=== PATIENT | male | born 1955 | race Caucasian/White ===

== ENCOUNTER → 2018-07-14 | Outpatient (CLI) | payer BC ==
--- NOTE | 2018-07-14 12:32 | CT ---
EXAMINATION TYPE: CT abdomen pelvis w con DATE OF EXAM: 07/14/2018 COMPARISON: None HISTORY: Mid Abdominal and Pelvic pain on and off with bowel changes for [address] DLP: 566.5 mGycm Automated exposure control for dose reduction was used. TECHNIQUE: Helical acquisition of images was performed from the lung bases through the pelvis. CONTRAST: Performed with Oral Contrast and with IV Contrast, patient injected with 100 mL of Isovue 300. FINDINGS: LUNG BASES: Left hemidiaphragm elevation is seen. Minimal bibasilar subsegmental dependent atelectasi s is present. LIVER/GB: There is slight decreased attenuation of the hepatic parenchyma in comparison to the spleen indicating minimal hepatic steatosis. This limits evaluation for hepatic masses although no discrete hepatic masses are seen. No cholelithiasis. PANCREAS: Unremarkable in enhancement and morphology. SPLEEN: No significant abnormality is seen. ADRENALS: Slight thickening of the bilateral adrenal glands without discrete nodule suggestive of O g land hyperplasia, a benign finding. KIDNEYS: There are bilateral renal sinus cysts. Kidneys enhance and excrete symmetrically. FREE AIR: No free air is visualized. ADENOPATHY: No greater than 1 cm short axis lymph node is visualized within the abdomen or pelvis. REPRODUCTIVE ORGANS: Prostate gland is not enlarged although is slightly heterogenous, a nonspecific finding on CT. URINARY BLADDER: No significant abnormality is seen. OSSEOUS STRUCTURES: There is grade 1 anterolisthesis of L5 on S1 secondary to bilateral pars interar ticularis defects. There is also minimal retrolisthesis of L1 on L2 and T12 on L1 and mild multilevel degenerative changes of the spine. BOWEL: There is haustral thickening of the cecum such as on coronal image 33 and 31 and series 7 as well as on axial images 58 through 60. No dilated large or small bowel is seen. IMPRESSION: 1. HAUSTRAL THICKENING OF THE CECUM THAT COULD RELATE TO COLONIC SPASM, RETAINED STOOL, OR COLONIC NE OPLASM. CORRELATE WITH ANY RECENT COLONOSCOPY. IF NOT RECENTLY PERFORMED COLONOSCOPY WOULD BE RECOMME NDED. 2. MULTILEVEL MALALIGNMENT OF THE THORACOLUMBAR SPINE DESCRIBED ABOVE IN ADDITION TO MILD MULTILEV EL DEGENERATIVE CHANGE 3. SLIGHT HEPATIC STEATOSIS.
== END | disposition home or self-care (01) ==
LOC: RADCTMAIN 09:54
PROVIDERS: ATTEND Family Medicine
DX: K76.0 Fatty (change of) liver, not elsewhere classified (principal); K63.89 Other specified diseases of intestine; R10.9 Unspecified abdominal pain
CPT/HCPCS: 74177; Q9967

== ENCOUNTER 2018-07-17 14:10 | Observation (INO) | payer BC ==
[2018-07-17] MEDS ORDERED: SODIUM CHLORIDE 0.9% 1,000 ML IV STA ×3 (14:27→19:29)
[2018-07-17] MEDS ORDERED: HYDROmorphone 1 MG/ML 1 ML SYRINGE IVP STA (14:27)
[2018-07-17 14:53] LABS: Basophils % (A) 0 %; Eosinophils # (A) 0.1 k/uL (0-0.7); Eosinophils % (A) 1 %; HCT 49.7 % (39.0-53.0); HGB 16.6 gm/dL (13.0-17.5); Lymphocytes # (A) 0.6 k/uL (1.0-4.8); Lymphocytes % (A) 4 %; MCH 30.1 pg (25.0-35.0); MCHC 33.3 g/dL (31.0-37.0); MCV 90.4 fL (80.0-100.0); Mean Platelet Volume 7.3; Monocytes # (A) 0.6 k/uL (0-1.0); Monocytes % (A) 4 %; Neutrophils % (A) 91 %; Platelet Count 201 k/uL (150-450); RDW 12.5 % (11.5-15.5); WBC 16.5 k/uL (3.8-10.6)
[2018-07-17 15:05] LABS: Albumin 4.3 g/dL (3.5-5.0); Calcium 9.3 mg/dL (8.4-10.2); Magnesium 1.8 mg/dL (1.6-2.3); Potassium 4.2 mmol/L (3.5-5.1); Total Protein 6.6 g/dL (6.3-8.2)
--- NOTE | 2018-07-17 15:16 | ED ---
Abdominal Pain HPI - General Chief Complaint: Abdominal Pain Stated Complaint: abdominal pain Time Seen by Provider: 07/17/18 14:14 Source: patient, EMS, RN notes reviewed, old records reviewed Mode of arrival: EMS Limitations: no limitations, language barrier - History of Present Illness Initial Comments: This is a 63-year-old male with complaints of abdominal pain going on for last week or so it's worse today left lower quadrant area some radiation to the back he states he been under last stress lately and has irritable bowel. He did have a CAT scan done 3 days ago and does not know the results. He denies any cough phlegm production fevers chills sweats dysuria hematuria. He is to have a colonoscopy in the of this month. No other complaints he does state the pain is sharp stabbing and severe. The patient was given Toradol IV by paramedics he gets some relief in the pain came back. MD Complaint: abdominal pain - Related Data Home Medications Medication Instructions Recorded Confirmed Atenolol 25 mg PO HS 07/17/18 07/17/18 Atorvastatin [Lipitor] 20 mg PO HS 07/17/18 07/17/18 Dicyclomine [Bentyl] 20 mg PO TID 07/17/18 07/17/18 Methylphenidate HCl [Ritalin] 10 mg PO TID 07/17/18 07/17/18 Allergies Allergy/AdvReac Type Severity Reaction Status Date / Time latex Allergy Rash/Hives Verified 07/17/18 15:15 sulfite Allergy Dyspnea Verified 07/17/18 15:15 Review of Systems ROS Statement: Those systems with pertinent positive or pertinent negative responses have been documented in the HPI. ROS Other: All systems not noted in ROS Statement are negative. Past Medical History Past Medical History: Hyperlipidemia, Hypertension History of Any Multi-Drug Resistant Organisms: None Reported Past Surgical History: No Surgical Hx Reported Additional Past Surgical History / Comment(s): prostate surg Past Psychological History: No Psychological Hx Reported Smoking Status: Never smoker Past Alcohol Use History: None Reported General Exam - General Exam Comments Initial Comments: This is a well developed well-nourished awake alert oriented 3 male Limitations: no limitations, language barrier General appearance: alert, anxious Head exam: Present: atraumatic, normocephalic, normal inspection Eye exam: Present: normal appearance, PERRL, EOMI. Absent: scleral icterus, conjunctival injection, periorbital swelling ENT exam: Present: normal exam, mucous membranes moist Neck exam: Present: normal inspection, full ROM. Absent: tenderness, meningismus, lymphadenopathy Respiratory exam: Present: normal lung sounds bilaterally. Absent: respiratory distress, wheezes, rales, rhonchi, stridor, chest wall tenderness Cardiovascular Exam: Present: regular rate, normal rhythm, normal heart sounds. Absent: systolic murmur, diastolic murmur, rubs, gallop, clicks GI/Abdominal exam: Present: soft, tenderness (Tenderness to palpation over left flank and lower quadrant area), normal bowel sounds. Absent: distended, guarding, rebound, rigid, bruit, pulsatile mass, hernia Rectal exam: Present: deferred Extremities exam: Present: normal inspection, full ROM, normal capillary refill. Absent: tenderness, pedal edema, joint swelling, calf tenderness Back exam: Present: normal inspection Neurological exam: Present: alert, oriented X3, CN II-XII intact Psychiatric exam: Present: normal affect, normal mood Skin exam: Present: warm, dry, intact, normal color. Absent: rash Course Vital Signs 07/17/18 07/17/18 07/17/18 14:15 14:16 14:30 Temperature 97.1 F L Pulse Rate 56 L 57 L 53 L Respiratory 13 28 H 17 Rate Blood Pressure 128/77 128/77 O2 Sat by Pulse 100 100 Oximetry 07/17/18 07/17/18 07/17/18 15:00 15:30 16:00 Temperature Pulse Rate 74 81 82 Respiratory 12 11 L 15 Rate Blood Pressure 118/107 124/72 128/77 O2 Sat by Pulse 98 88 L 94 L Oximetry 07/17/18 07/17/18 07/17/18 16:30 17:00 17:30 Temperature Pulse Rate 94 74 79 Respiratory 20 16 14 Rate Blood Pressure 127/73 127/72 141/78 O2 Sat by Pulse 97 94 L 96 Oximetry 07/17/18 07/17/18 07/17/18 18:00 18:30 19:00 Temperature Pulse Rate 75 75 Respiratory 13 15 Rate Blood Pressure 131/74 143/78 O2 Sat by Pulse 95 Oximetry 07/17/18 19:51 Temperature 99.3 F Pulse Rate 72 Respiratory 16 Rate Blood Pressure 143/89 O2 Sat by Pulse 98 Oximetry - Reevaluation(s) Reevaluation #1: 07/17/18 15:15 I did review the CT report hospital 13 of the C Georgette could be related to colonic spasm and retain stool colonic neoplasm not ruled out multi level malalignment of the thoracic or lumbar spine mild multilevel degenerative changes slight hepatic steatosis Medical Decision Making - Medical Decision Making Patient still has intermittent episodes of abdominal pain that he is improved the. He did have an elevated white blood cell count elevated lactic acid believe the lactic acid is elevated based on primarily fluid depravation however infectious processes still not totally ruled out. Patient will be admitted for continued IV fluids IV antibiotics. - Lab Data Result diagrams: 07/17/18 14:34 07/17/18 14:34 Lab Results 07/17/18 07/17/18 07/17/18 Range/Units 14:34 14:34 14:34 WBC 16.5 H (3.8-10.6) k/uL RBC 5.50 (4.30-5.90) m/uL Hgb 16.6 (13.0-17.5) gm/dL Hct 49.7 (39.0-53.0) % MCV 90.4 (80.0-100.0) fL MCH 30.1 (25.0-35.0) pg MCHC 33.3 (31.0-37.0) g/dL RDW 12.5 (11.5-15.5) % Plt Count 201 (150-450) k/uL Neutrophils % 91 % Lymphocytes % 4 % Monocytes % 4 % Eosinophils % 1 % Basophils % 0 % Neutrophils # 15.0 H (1.3-7.7) k/uL Lymphocytes # 0.6 L (1.0-4.8) k/uL Monocytes # 0.6 (0-1.0) k/uL Eosinophils # 0.1 (0-0.7) k/uL Basophils # 0.0 (0-0.2) k/uL Sodium 141 (137-145) mmol/L Potassium 4.2 (3.5-5.1) mmol/L Chloride 108 H (98-107) mmol/L Carbon Dioxide 21 L (22-30) mmol/L Anion Gap 12 mmol/L BUN 26 H (9-20) mg/dL Creatinine 1.03 (0.66-1.25) mg/dL Est GFR (CKD-EPI)AfAm 89 (>60 ml/min/1.73 sqM) Est GFR (CKD-EPI)NonAf 77 (>60 ml/min/1.73 sqM) Glucose 126 H (74-99) mg/dL Lactic Ac Sepsis Rflx Plasma Lactic Acid Ken (0.7-2.0) mmol/L Calcium 9.3 (8.4-10.2) mg/dL Magnesium 1.8 (1.6-2.3) mg/dL Total Bilirubin 1.0 (0.2-1.3) mg/dL AST 21 (17-59) U/L ALT 35 (21-72) U/L Alkaline Phosphatase 73 (38-126) U/L Total Creatine Kinase 109 (55-170) U/L CK-MB (CK-2) 1.5 (0.0-2.4) ng/mL CK-MB (CK-2) Rel Index 1.4 Troponin I <0.012 (0.000-0.034) ng/mL Total Protein 6.6 (6.3-8.2) g/dL Albumin 4.3 (3.5-5.0) g/dL Amylase 74 (30-110) U/L Lipase 205 (23-300) U/L Urine Color Urine Appearance (Clear) Urine pH (5.0-8.0) Ur Specific [place] (1.001-1.035) Urine Protein (Negative) Urine Glucose (UA) (Negative) Urine Ketones (Negative) Urine Blood (Negative) Urine Nitrite (Negative) Urine Bilirubin (Negative) Urine Urobilinogen (<2.0) mg/dL Ur Leukocyte Esterase (Negative) Urine RBC (0-5) /hpf Urine WBC (0-5) /hpf Ur Squamous Epith Cells (0-4) /hpf Urine Mucus (None) /hpf 07/17/18 07/17/18 07/17/18 Range/Units 14:34 15:21 19:00 WBC (3.8-10.6) k/uL RBC (4.30-5.90) m/uL Hgb (13.0-17.5) gm/dL Hct (39.0-53.0) % MCV (80.0-100.0) fL MCH (25.0-35.0) pg MCHC (31.0-37.0) g/dL RDW (11.5-15.5) % Plt Count (150-450) k/uL Neutrophils % % Lymphocytes % % Monocytes % % Eosinophils % % Basophils % % Neutrophils # (1.3-7.7) k/uL Lymphocytes # (1.0-4.8) k/uL Monocytes # (0-1.0) k/uL Eosinophils # (0-0.7) k/uL Basophils # (0-0.2) k/uL Sodium (137-145) mmol/L Potassium (3.5-5.1) mmol/L Chloride (98-107) mmol/L Carbon Dioxide (22-30) mmol/L Anion Gap mmol/L BUN (9-20) mg/dL Creatinine (0.66-1.25) mg/dL Est GFR (CKD-EPI)AfAm (>60 ml/min/1.73 sqM) Est GFR (CKD-EPI)NonAf (>60 ml/min/1.73 sqM) Glucose (74-99) mg/dL Lactic Ac Sepsis Rflx Y Plasma Lactic Acid Ken 4.1 H* (0.7-2.0) mmol/L Calcium (8.4-10.2) mg/dL Magnesium (1.6-2.3) mg/dL Total Bilirubin (0.2-1.3) mg/dL AST (17-59) U/L ALT (21-72) U/L Alkaline Phosphatase (38-126) U/L Total Creatine Kinase (55-170) U/L CK-MB (CK-2) (0.0-2.4) ng/mL CK-MB (CK-2) Rel Index Troponin I (0.000-0.034) ng/mL Total Protein (6.3-8.2) g/dL Albumin (3.5-5.0) g/dL Amylase (30-110) U/L Lipase (23-300) U/L Urine Color Light Yellow Urine Appearance Clear (Clear) Urine pH 6.0 (5.0-8.0) Ur Specific [place] >1.050 H (1.001-1.035) Urine Protein Negative (Negative) Urine Glucose (UA) Negative (Negative) Urine Ketones 1+ H (Negative) Urine Blood Moderate H (Negative) Urine Nitrite Negative (Negative) Urine Bilirubin Negative (Negative) Urine Urobilinogen <2.0 (<2.0) mg/dL Ur Leukocyte Esterase Negative (Negative) Urine RBC 24 H (0-5) /hpf Urine WBC 1 (0-5) /hpf Ur Squamous Epith Cells <1 (0-4) /hpf Urine Mucus Occasional H (None) /hpf 07/17/18 Range/Units 19:20 WBC (3.8-10.6) k/uL RBC (4.30-5.90) m/uL Hgb (13.0-17.5) gm/dL Hct (39.0-53.0) % MCV (80.0-100.0) fL MCH (25.0-35.0) pg MCHC (31.0-37.0) g/dL RDW (11.5-15.5) % Plt Count (150-450) k/uL Neutrophils % % Lymphocytes % % Monocytes % % Eosinophils % % Basophils % % Neutrophils # (1.3-7.7) k/uL Lymphocytes # (1.0-4.8) k/uL Monocytes # (0-1.0) k/uL Eosinophils # (0-0.7) k/uL Basophils # (0-0.2) k/uL Sodium (137-145) mmol/L Potassium (3.5-5.1) mmol/L Chloride (98-107) mmol/L Carbon Dioxide (22-30) mmol/L Anion Gap mmol/L BUN (9-20) mg/dL Creatinine (0.66-1.25) mg/dL Est GFR (CKD-EPI)AfAm (>60 ml/min/1.73 sqM) Est GFR (CKD-EPI)NonAf (>60 ml/min/1.73 sqM) Glucose (74-99) mg/dL Lactic Ac Sepsis Rflx Plasma Lactic Acid Ken <0.5 L (0.7-2.0) mmol/L Calcium (8.4-10.2) mg/dL Magnesium (1.6-2.3) mg/dL Total Bilirubin (0.2-1.3) mg/dL AST (17-59) U/L ALT (21-72) U/L Alkaline Phosphatase (38-126) U/L Total Creatine Kinase (55-170) U/L CK-MB (CK-2) (0.0-2.4) ng/mL CK-MB (CK-2) Rel Index Troponin I (0.000-0.034) ng/mL Total Protein (6.3-8.2) g/dL Albumin (3.5-5.0) g/dL Amylase (30-110) U/L Lipase (23-300) U/L Urine Color Urine Appearance (Clear) Urine pH (5.0-8.0) Ur Specific [place] (1.001-1.035) Urine Protein (Negative) Urine Glucose (UA) (Negative) Urine Ketones (Negative) Urine Blood (Negative) Urine Nitrite (Negative) Urine Bilirubin (Negative) Urine Urobilinogen (<2.0) mg/dL Ur Leukocyte Esterase (Negative) Urine RBC (0-5) /hpf Urine WBC (0-5) /hpf Ur Squamous Epith Cells (0-4) /hpf Urine Mucus (None) /hpf - Radiology Data Radiology results: report reviewed (I did review the imaging and report no definite acute findings are seen.), image reviewed Disposition Clinical Impression: Abdominal pain, Lactic acidosis, Dehydration, Leukocytosis Disposition: ADMITTED IP TO THIS [facility] Condition: Stable Referrals: Didi Hackett DO [Primary Care Provider] - 1-2 days
[2018-07-17] MEDS ORDERED: SODIUM CHLORIDE 0.9% 2,000 ML IV ONE (15:23)
[2018-07-17 15:25] LABS: Creatine Kinase 109 U/L (55-170)
[2018-07-17] MEDS ORDERED: FUROSEMIDE 10 MG/ML 4 ML VIAL IV SCH (15:30)
[2018-07-17 15:37] LABS: Creatine Kinase MB 1.5 ng/mL (0.0-2.4); Troponin I <0.012 ng/mL (0.000-0.034)
--- NOTE | 2018-07-17 15:54 | XR ---
EXAMINATION TYPE: XR KUB DATE OF EXAM: 07/17/2018 CLINICAL DATA: 63 year-old male abdominal pain, [facility] COMPARISON: None FINDINGS: Lung bases are clear. No evidence for free intraperitoneal air. Some small air-fluid levels are present in the mid lower abdomen and in the right side of the colon. No dilated bowel loops are seen. No suspicious calcifications. No significant stool burden. IMPRESSION: 1. Nonspecific, overall nonobstructive bowel gas pattern. No free air. 2. Some small air-fluid levels are present in the mid lower abdomen and right side of the colon. Torsten elate for ileus or enteritis.
[2018-07-17] MEDS ORDERED: METHYLPHENIDATE HCL 10 MG TAB PO SCH (16:00)
[2018-07-17] MEDS ORDERED: DICYCLOMINE 20 MG TAB PO SCH (16:00)
[2018-07-17] MEDS ORDERED: INSULIN ASPART 100 UNIT/ML 1 ML 10 ML VIAL SQ SCH (17:30)
[2018-07-17] MEDS ORDERED: NITROGLYCERIN OINT 1 INCH/GM PACKET TOPICAL SCH (18:00)
--- NOTE | 2018-07-17 18:32 | CT ---
EXAMINATION TYPE: CT abdomen pelvis w con DATE OF EXAM: 07/17/2018 COMPARISON: July 14, 2018 HISTORY: Right lower abdominal pain. CT DLP: 671.2 mGycm Automated exposure control for dose reduction was used. TECHNIQUE: Helical acquisition of images was performed from the lung bases through the pelvis. CONTRAST: Performed without Oral Contrast and with IV Contrast, patient injected with 100ml mL of Isovue 300. FINDINGS: The lung bases are clear. There is no pleural effusion. Heart size is normal. There is no pericardial effusion. Liver spleen pancreas gallbladder appear normal. Bile ducts are not dilated. There is no a drenal mass. Kidneys of normal size and contour. There is bilateral large renal parapelvic cysts. Ure ters are not dilated. There is no retroperitoneal adenopathy. There is no free fluid in the pelvis. B ladder distends smoothly. There is no inguinal hernia. I see no mesenteric edema or adenopathy. I see no bony destructive process. There is L5 spondylolysis with first-degree L5-S1 spondylolisthesis. I see no acute fracture. IMPRESSION: L5 SPONDYLOLYSIS WITH FIRST-DEGREE L5-S1 SPONDYLOLISTHESIS UNCHANGED. I SEE NO ABNORMALITY OF THE CECUM THAT IS SUGGESTED BY PREVIOUS EXAM. LARGE RENAL PARAPELVIC CYSTS UN CHANGED. NO SIGN OF ACUTE ABDOMEN AND PELVIS.
--- NOTE | 2018-07-17 19:22 | XR ---
EXAMINATION TYPE: XR chest 2V DATE OF EXAM: 07/17/2018 COMPARISON: NONE HISTORY: Cough TECHNIQUE: Frontal and lateral views of the chest are obtained. FINDINGS: Heart and mediastinum are normal. Lungs are clear. Costophrenic angles are clear. Bony tho rax appears normal. There are chest leads. IMPRESSION: Normal chest.
[2018-07-17 19:49] LABS: Appearance,Urine Clear (Clear); Bilirubin,Urine Negative (Negative); Blood,Urine Moderate (Negative); Color,Urine Light Yellow; Glucose,Urine (UA) Negative (Negative); Ketones,Urine 1+ (Negative); Leukocyte Esterase,Urine Negative (Negative); Mucus,Urine Occasional /hpf; Nitrite,Urine Negative (Negative); Protein,Urine Negative (Negative); RBC,Urine 24 /hpf (0-5); Squamous Epithelial Cell,Urine <1 /hpf (0-4); Urobilinogen,Urine <2.0 mg/dL (<2.0); WBC,Urine 1 /hpf (0-5)
[2018-07-17 20:14] LABS: Specific Gravity,Urine >1.050 (1.001-1.035)
[2018-07-17] MEDS ORDERED: ONDANSETRON 4 MG/2 ML VIAL IVP PRN (20:22)
[2018-07-17] MEDS ORDERED: NALOXONE 0.4 MG/ML 1 ML VIAL IV PRN (20:22)
[2018-07-17] MEDS ORDERED: ATORVASTATIN 20 MG TAB PO SCH (21:00)
[2018-07-17] MEDS ORDERED: ATENOLOL 25 MG TAB PO SCH (21:00)
[2018-07-17] MEDS: HYDROmorphone 1 MG/ML 1 ML SYRINGE IVP PRN (23:28)
[2018-07-18 00:09] VITALS: TEMP 98.4
[2018-07-18] MEDS: HYDROmorphone 1 MG/ML 1 ML SYRINGE IVP PRN ×2 (05:23→11:21)
[2018-07-18 06:08] VITALS: BP 129/70; PULSE 72; RESP 18
[2018-07-18] MEDS ORDERED: PANTOPRAZOLE 40 MG/10 ML VIAL IV SCH (09:00)
[2018-07-18 11:28] LABS: Basophils % (A) 1 %; Eosinophils # (A) 0.1 k/uL (0-0.7); Eosinophils % (A) 1 %; HCT 42.4 % (39.0-53.0); HGB 13.9 gm/dL (13.0-17.5); Lymphocytes # (A) 0.9 k/uL (1.0-4.8); Lymphocytes % (A) 12 %; MCH 29.9 pg (25.0-35.0); MCHC 32.8 g/dL (31.0-37.0); MCV 91.3 fL (80.0-100.0); Mean Platelet Volume 7.2; Monocytes # (A) 0.4 k/uL (0-1.0); Monocytes % (A) 6 %; Neutrophils # (A) 5.5 k/uL (1.3-7.7); Neutrophils % (A) 78 %; Platelet Count 153 k/uL (150-450); RBC 4.65 m/uL (4.30-5.90); RDW 12.7 % (11.5-15.5); WBC 7.1 k/uL (3.8-10.6)
--- NOTE | 2018-07-18 11:40 | P.HPIM ---
History of Present Illness H&P Date: 07/18/18 Chief Complaint: Abdominal pain Jerry Goodwin is a 63-year-old male patient of Dr. Didi Hackett who presented to [facility] emergency room with a chief complaint of abdominal pain patient describes severe pain in the left side of his abdomen lasting about 4 hours, patient also states that he has been having abdominal pain for several weeks now he was evaluated as outpatient he had a computed tomography scan of the abdomen and pelvis on 07/14/2018 that revealed thickening of the cecum patient was scheduled as outpatient to have a colonoscopy however he had an episode of severe acute abdominal pain and he decided to come to emergency room, he was evaluated in ER his white blood count was elevated at 16.5 his lactic acid was elevated at 4.1 x-ray of the abdomen revealed air-fluid levels are present in the mid lower abdomen and right side of the colon computed tomography scan of the abdomen and pelvis failed to reveal any significant abnormality he was admitted to medical floor for further evaluation and treatment. Patient stated that he has been under significant amount of stress recently, his father had a prolonged illness and past away recently. He was given Bentyl as outpatient for management of abdominal pain, possibly related to irritable bowel syndrome. Past Medical History Past Medical History: Hyperlipidemia, Hypertension History of Any Multi-Drug Resistant Organisms: None Reported Past Surgical History: No Surgical Hx Reported Additional Past Surgical History / Comment(s): prostate surg Past Anesthesia/Blood Transfusion Reactions: No Reported Reaction Past Psychological History: No Psychological Hx Reported Smoking Status: Never smoker Past Alcohol Use History: None Reported Past Drug Use History: None Reported - Past Family History Father Family Medical History: Cancer, Hypertension, Myocardial Infarction ([place]) Medications and Allergies Home Medications Medication Instructions Recorded Confirmed Type Atenolol 25 mg PO HS 07/17/18 07/17/18 History Atorvastatin [Lipitor] 20 mg PO HS 07/17/18 07/17/18 History Dicyclomine [Bentyl] 20 mg PO TID 07/17/18 07/17/18 History Methylphenidate HCl [Ritalin] 10 mg PO TID 07/17/18 07/17/18 History Allergies Allergy/AdvReac Type Severity Reaction Status Date / Time latex Allergy Rash/Hives Verified 07/17/18 15:15 sulfite Allergy Dyspnea Verified 07/17/18 15:15 Physical Exam Vitals: Vital Signs Temp Pulse Pulse Resp BP BP Pulse Ox 07/18/18 06:07 98.4 F 72 18 129/70 98 07/17/18 23:00 98.4 F 69 19 143/76 95 07/17/18 19:51 99.3 F 72 16 143/89 98 07/17/18 19:00 75 15 143/78 07/17/18 18:30 75 13 95 07/17/18 18:00 131/74 07/17/18 17:30 79 14 141/78 96 07/17/18 17:00 74 16 127/72 94 L 07/17/18 16:30 94 20 127/73 97 07/17/18 16:00 82 15 128/77 94 L 07/17/18 15:30 81 11 L 124/72 88 L 07/17/18 15:00 74 12 118/107 98 07/17/18 14:30 53 L 17 128/77 100 07/17/18 14:16 97.1 F L 57 L 28 H 128/77 100 07/17/18 14:15 56 L 13 Intake and Output 07/17/18 07/18/18 07/18/18 22:59 06:59 14:59 Other: # Voids 1 2 In general patient is alert and oriented 3 in no apparent distress HEENT head normocephalic and atraumatic Neck is supple no JVD no goiter no lymphadenopathy Chest exam reveals a few scattered crackles bilaterally no wheezing Cardiac exam reveals regular heart sounds S1 and S2 no gallops no murmurs Abdomen is soft nontender no organomegaly with normal bowel sounds no rigidity or rebound Extremity exam reveals no edema no cyanosis or clubbing Results CBC & Chem 7: 07/17/18 14:34 07/17/18 14:34 Labs: Abnormal Lab Results - Last 24 Hours (Table) 07/17/18 07/17/18 07/17/18 Range/Units 14:34 14:34 14:34 WBC 16.5 H (3.8-10.6) k/uL Neutrophils # 15.0 H (1.3-7.7) k/uL Lymphocytes # 0.6 L (1.0-4.8) k/uL Chloride 108 H (98-107) mmol/L Carbon Dioxide 21 L (22-30) mmol/L BUN 26 H (9-20) mg/dL Glucose 126 H (74-99) mg/dL Plasma Lactic Acid Ken 4.1 H* (0.7-2.0) mmol/L Ur Specific [place] (1.001-1.035) Urine Ketones (Negative) Urine Blood (Negative) Urine RBC (0-5) /hpf Urine Mucus (None) /hpf 07/17/18 07/17/18 Range/Units 19:00 19:20 WBC (3.8-10.6) k/uL Neutrophils # (1.3-7.7) k/uL Lymphocytes # (1.0-4.8) k/uL Chloride (98-107) mmol/L Carbon Dioxide (22-30) mmol/L BUN (9-20) mg/dL Glucose (74-99) mg/dL Plasma Lactic Acid Ken <0.5 L (0.7-2.0) mmol/L Ur Specific [place] >1.050 H (1.001-1.035) Urine Ketones 1+ H (Negative) Urine Blood Moderate H (Negative) Urine RBC 24 H (0-5) /hpf Urine Mucus Occasional H (None) /hpf Thrombosis Risk Factor Assmnt - Choose All That Apply Any of the Below Risk Factors Present?: Yes Other Risk Factors: Yes Each Risk Factor Represents 2 Points: Age 61-74 years Other congenital or acquired thrombophilia - If yes, enter type in comment: No Thrombosis Risk Factor Assessment Total Risk Factor Score: 2 Thrombosis Risk Factor Assessment Level: Low Risk Assessment and Plan Plan: #1 acute abdominal pain, with leukocytosis and elevated lactic acid Cause is unclear patient is admitted to medical floor surgical consultation requested repeat lab ordered, will follow closely #2 elevated lactic acid no evidence of sepsis will monitor, patient was given 1 dose of IV Rocephin in the emergency room, will hold off IV antibiotic at this time and monitor #3 underlying history of hypertension maintained on atenolol continue #4 underlying history of hyperlipidemia maintained on Lipitor continue #5 underlying history of irritable bowel disease maintained on Bentyl, continue Will recheck labs this a.m. patient at this time is asymptomatic If stable he may be able to be discharged home and follow up with his colonoscopy as outpatient
[2018-07-18 11:43] LABS: Chloride 109 mmol/L (98-107)
[2018-07-18 11:45] LABS: ALT 33 U/L (21-72); AST 18 U/L (17-59); Albumin 3.5 g/dL (3.5-5.0); Alkaline Phosphatase 53 U/L (38-126); Anion Gap 6 mmol/L; Blood Urea Nitrogen 18 mg/dL (9-20); Calcium 8.8 mg/dL (8.4-10.2); Carbon Dioxide 25 mmol/L (22-30); Glucose 90 mg/dL (74-99); Potassium 3.9 mmol/L (3.5-5.1); Sodium 140 mmol/L (137-145); Total Bilirubin 0.7 mg/dL (0.2-1.3); Total Protein 5.7 g/dL (6.3-8.2)
--- NOTE | 2018-07-18 12:52 | P.DS ---
Providers Date of admission: 07/17/18 20:22 Expected date of discharge: 07/18/18 Attending physician: Lilliana Lebron Consults: 07/17/18 20:25 Consult Physician Routine Consulting Provider: Mateo Lay Consult Reason/Comments: Abdominal pain Do you want consulting provider notified?: Yes, Notify in am Primary care physician: Didi Hackett [place] Hospital Course: Diagnosis on discharge: #1 acute abdominal pain, with leukocytosis and elevated lactic acid, Cause is unclear patient is admitted to medical floor surgical consultation requested repeat lab ordered, will follow closely Abdominal pain resolved lactic acid was down to normal less than 0.5 and white blood count was down to normal patient was feeling well and asymptomatic he was evaluated by general surgery and was cleared for discharge he was discharged home on 07/18/2018 he will be followed as outpatient for colonoscopy. #2 elevated lactic acid no evidence of sepsis will monitor, patient was given 1 dose of IV Rocephin in the emergency room, will hold off IV antibiotic at this time and monitor #3 underlying history of hypertension maintained on atenolol continue #4 underlying history of hyperlipidemia maintained on Lipitor continue #5 underlying history of irritable bowel disease maintained on Bentyl, continue Hospital course: Jerry Goodwin is a 63-year-old male patient of Dr. Didi Hackett who presented to [facility] emergency room with a chief complaint of abdominal pain patient describes severe pain in the left side of his abdomen lasting about 4 hours, patient also states that he has been having abdominal pain for several weeks now he was evaluated as outpatient he had a computed tomography scan of the abdomen and pelvis on 07/14/2018 that revealed thickening of the cecum patient was scheduled as outpatient to have a colonoscopy however he had an episode of severe acute abdominal pain and he decided to come to emergency room, he was evaluated in ER his white blood count was elevated at 16.5 his lactic acid was elevated at 4.1 x-ray of the abdomen revealed air-fluid levels are present in the mid lower abdomen and right side of the colon computed tomography scan of the abdomen and pelvis failed to reveal any significant abnormality he was admitted to medical floor for further evaluation and treatment. Patient stated that he has been under significant amount of stress recently, his father had a prolonged illness and past away recently. He was given Bentyl as outpatient for management of abdominal pain, possibly related to irritable bowel syndrome. Patient was admitted to medical floor he was kept nothing by mouth his abdominal pain resolved his white blood count was down to normal repeat lactic acid was down to normal less than 0.5 patient was totally asymptomatic he was evaluated by surgery and was cleared for discharge he has an appointment as outpatient for colonoscopy on August 02 he was told to keep that appointment. He will follow-up with his primary care physician Dr. Didi Hackett within 1 week Patient Condition at Discharge: Stable Plan - Discharge Summary New Discharge Prescriptions: Continue Methylphenidate HCl [Ritalin] 10 mg PO TID Dicyclomine [Bentyl] 20 mg PO TID Atorvastatin [Lipitor] 20 mg PO HS Atenolol 25 mg PO HS Discharge Medication List Atenolol 25 mg PO HS 07/17/18 [History] Atorvastatin [Lipitor] 20 mg PO HS 07/17/18 [History] Dicyclomine [Bentyl] 20 mg PO TID 07/17/18 [History] Methylphenidate HCl [Ritalin] 10 mg PO TID 07/17/18 [History] Follow up Appointment(s)/Referral(s): Didi Hackett DO [Primary Care Provider] - 1-2 days
--- NOTE | 2018-07-18 13:01 | P.GSCN ---
History of Present Illness Consult date: 07/18/18 Reason for Consult: Abdominal pain History of present illness: This is a 63-year-old male who is admitted to the hospital complaints of spastic abdominal pain. Patient describes a knifelike pain in his mid abdomen. Patient states pain has resolved. He feels almost normal today. Past Medical History Past Medical History: Hyperlipidemia, Hypertension History of Any Multi-Drug Resistant Organisms: None Reported Past Surgical History: No Surgical Hx Reported Additional Past Surgical History / Comment(s): prostate surg Past Anesthesia/Blood Transfusion Reactions: No Reported Reaction Past Psychological History: No Psychological Hx Reported Smoking Status: Never smoker Past Alcohol Use History: None Reported Past Drug Use History: None Reported - Past Family History Father Family Medical History: Cancer, Hypertension, Myocardial Infarction ([place]) Medications and Allergies Home Medications Medication Instructions Recorded Confirmed Type Atenolol 25 mg PO HS 07/17/18 07/17/18 History Atorvastatin [Lipitor] 20 mg PO HS 07/17/18 07/17/18 History Dicyclomine [Bentyl] 20 mg PO TID 07/17/18 07/17/18 History Methylphenidate HCl [Ritalin] 10 mg PO TID 07/17/18 07/17/18 History Allergies Allergy/AdvReac Type Severity Reaction Status Date / Time latex Allergy Rash/Hives Verified 07/17/18 15:15 sulfite Allergy Dyspnea Verified 07/17/18 15:15 Surgical - Exam Vital Signs Pulse Resp 56 L 13 07/17/18 14:15 07/17/18 14:15 - General well developed, no distress - Eyes PERRL - ENT normal pinna - Neck no masses - Respiratory normal expansion - Cardiovascular Rhythm: regular - Abdomen Abdomen: soft, non tender Results - Labs 07/18/18 11:11 07/18/18 11:11 Abnormal Lab Results - Last 24 Hours (Table) 07/17/18 07/17/18 07/17/18 Range/Units 14:34 14:34 14:34 WBC 16.5 H (3.8-10.6) k/uL Neutrophils # 15.0 H (1.3-7.7) k/uL Lymphocytes # 0.6 L (1.0-4.8) k/uL Chloride 108 H (98-107) mmol/L Carbon Dioxide 21 L (22-30) mmol/L BUN 26 H (9-20) mg/dL Glucose 126 H (74-99) mg/dL Plasma Lactic Acid Ken 4.1 H* (0.7-2.0) mmol/L Total Protein (6.3-8.2) g/dL Ur Specific [place] (1.001-1.035) Urine Ketones (Negative) Urine Blood (Negative) Urine RBC (0-5) /hpf Urine Mucus (None) /hpf 07/17/18 07/17/18 07/18/18 Range/Units 19:00 19:20 11:11 WBC (3.8-10.6) k/uL Neutrophils # (1.3-7.7) k/uL Lymphocytes # 0.9 L (1.0-4.8) k/uL Chloride (98-107) mmol/L Carbon Dioxide (22-30) mmol/L BUN (9-20) mg/dL Glucose (74-99) mg/dL Plasma Lactic Acid Ken <0.5 L (0.7-2.0) mmol/L Total Protein (6.3-8.2) g/dL Ur Specific [place] >1.050 H (1.001-1.035) Urine Ketones 1+ H (Negative) Urine Blood Moderate H (Negative) Urine RBC 24 H (0-5) /hpf Urine Mucus Occasional H (None) /hpf 07/18/18 Range/Units 11:11 WBC (3.8-10.6) k/uL Neutrophils # (1.3-7.7) k/uL Lymphocytes # (1.0-4.8) k/uL Chloride 109 H (98-107) mmol/L Carbon Dioxide (22-30) mmol/L BUN (9-20) mg/dL Glucose (74-99) mg/dL Plasma Lactic Acid Ken (0.7-2.0) mmol/L Total Protein 5.7 L (6.3-8.2) g/dL Ur Specific [place] (1.001-1.035) Urine Ketones (Negative) Urine Blood (Negative) Urine RBC (0-5) /hpf Urine Mucus (None) /hpf Diabetes panel 07/17/18 07/18/18 Range/Units 14:34 11:11 Sodium 141 140 (137-145) mmol/L Potassium 4.2 3.9 (3.5-5.1) mmol/L Chloride 108 H 109 H (98-107) mmol/L Carbon Dioxide 21 L 25 (22-30) mmol/L BUN 26 H 18 (9-20) mg/dL Creatinine 1.03 0.85 (0.66-1.25) mg/dL Glucose 126 H 90 (74-99) mg/dL Calcium 9.3 8.8 (8.4-10.2) mg/dL AST 21 18 (17-59) U/L ALT 35 33 (21-72) U/L Alkaline Phosphatase 73 53 (38-126) U/L Total Protein 6.6 5.7 L (6.3-8.2) g/dL Albumin 4.3 3.5 (3.5-5.0) g/dL Calcium panel 07/17/18 07/18/18 Range/Units 14:34 11:11 Calcium 9.3 8.8 (8.4-10.2) mg/dL Albumin 4.3 3.5 (3.5-5.0) g/dL Pituitary panel 07/17/18 07/18/18 Range/Units 14:34 11:11 Sodium 141 140 (137-145) mmol/L Potassium 4.2 3.9 (3.5-5.1) mmol/L Chloride 108 H 109 H (98-107) mmol/L Carbon Dioxide 21 L 25 (22-30) mmol/L BUN 26 H 18 (9-20) mg/dL Creatinine 1.03 0.85 (0.66-1.25) mg/dL Glucose 126 H 90 (74-99) mg/dL Calcium 9.3 8.8 (8.4-10.2) mg/dL Adrenal panel 07/17/18 07/18/18 Range/Units 14:34 11:11 Sodium 141 140 (137-145) mmol/L Potassium 4.2 3.9 (3.5-5.1) mmol/L Chloride 108 H 109 H (98-107) mmol/L Carbon Dioxide 21 L 25 (22-30) mmol/L BUN 26 H 18 (9-20) mg/dL Creatinine 1.03 0.85 (0.66-1.25) mg/dL Glucose 126 H 90 (74-99) mg/dL Calcium 9.3 8.8 (8.4-10.2) mg/dL Total Bilirubin 1.0 0.7 (0.2-1.3) mg/dL AST 21 18 (17-59) U/L ALT 35 33 (21-72) U/L Alkaline Phosphatase 73 53 (38-126) U/L Total Protein 6.6 5.7 L (6.3-8.2) g/dL Albumin 4.3 3.5 (3.5-5.0) g/dL Assessment and Plan Assessment: Resolving abdominal pain. Patient will be discharged home today he'll follow- up in the office next week.
== END 2018-07-18 14:01 | disposition home or self-care (01) ==
LOC: EC 14:10 → 4MS4W 20:22
PROVIDERS: ADMIT Internal Medicine; ATTEND Internal Medicine
DX: R10.32 Left lower quadrant pain (principal); E78.5 Hyperlipidemia, unspecified; I10 Essential (primary) hypertension; E87.2 Acidosis; D72.829 Elevated white blood cell count, unspecified; E86.0 Dehydration; K58.9 Irritable bowel syndrome, unspecified; Z79.899 Other long term (current) drug therapy; Z88.8 Allergy status to other drugs, medicaments and biological substances; Z91.040 Latex allergy status; Z82.49 Family history of ischemic heart disease and other diseases of the circulatory system
CPT/HCPCS: 96376 ×2; 96361 ×3; 96375 ×2; 96365; 99285; 36415; 80053 ×2; 82150; 82550; 82553; 83605; 83690; 83735; 84484; 85025 ×2; 81001; 87040; 71046; 74018; 74177; G0378 ×2; J0696; J1170 ×2; C9113; Q9967

== ENCOUNTER → 2018-08-02 | Day surgery (SDC) | payer BC ==
[2018-07-29 13:30] VITALS: BMI 22.4
[~2018-08-02] MED LIST: LACTATED RINGERS 1,000 ML IV ONE; LACTATED RINGERS 1,000 ML IV SCH; PROPOFOL 10 MG/ML 20 ML VIAL IV ONE
[2018-08-02 07:31] VITALS: RESP 16; TEMP 98.6
--- NOTE | 2018-08-02 08:16 | P.GSHP ---
History of Present Illness H&P Date: 08/02/18 Chief Complaint: GERD, screening colonoscopy This is a 63-year-old male who presents today for EGD and colonoscopy. He's had issues GERD. This is initial screening colonoscopy. Past Medical History Past Medical History: GERD/Reflux, Hyperlipidemia, Hypertension Additional Past Medical History / Comment(s): HOSPITALIZED 07/17/17-07/18/17 FOR EPIGASTRIC PAIN AND LEFT ABDOMINAL PAIN., STATES WT LOSS OF 10-12 # IN THE LAST MONTH & 1/2., OCCASIONAL HEART BURN., TINNITUS., HX OF BACK PAIN. History of Any Multi-Drug Resistant Organisms: None Reported Past Surgical History: Prostate Surgery Additional Past Surgical History / Comment(s): HAND SURGERY, COLONOSCOPY Past Anesthesia/Blood Transfusion Reactions: Postoperative Nausea & Vomiting ( PONV) Past Psychological History: No Psychological Hx Reported Smoking Status: Never smoker Past Alcohol Use History: None Reported Past Drug Use History: None Reported - Past Family History Father Family Medical History: Cancer, Hypertension, Myocardial Infarction ([place]) Medications and Allergies Home Medications Medication Instructions Recorded Confirmed Type Atenolol 25 mg PO PC-SUPPER 07/17/18 08/02/18 History Methylphenidate HCl [Ritalin] 10 mg PO TID 07/17/18 08/02/18 History Simvastatin [Zocor] 20 mg PO PC-SUPPER 07/29/18 08/02/18 History Allergies Allergy/AdvReac Type Severity Reaction Status Date / Time latex Allergy Rash/Hives Verified 07/29/18 13:10 sulfite Allergy Dyspnea Verified 07/29/18 13:10 Surgical - Exam Vital Signs Temp Pulse Resp BP Pulse Ox 98.6 F 76 16 156/83 97 08/02/18 07:30 08/02/18 07:30 08/02/18 07:30 08/02/18 07:30 08/02/18 07:30 - General well developed, well nourished, no distress - Eyes PERRL - ENT normal pinna - Neck no masses - Respiratory normal expansion - Cardiovascular Rhythm: regular - Abdomen Abdomen: soft, non tender Assessment and Plan Assessment: GERD we'll perform EGD. We'll also perform screening colonoscopy.
--- NOTE | 2018-08-02 08:29 | P.OP ---
Date of Procedure: 08/02/18 Preoperative Diagnosis: GERD Screening colonoscopy Postoperative Diagnosis: Antral gastritis No evidence of hiatal hernia Mild esophagitis Normal colon Procedure(s) Performed: EGD Colonoscopy Anesthesia: MAC Surgeon: Mateo Lay Pathology: other (Antrum, esophagus) Condition: stable Disposition: PACU Description of Procedure: PROCEDURE: The patient was placed on the endoscopy table in the lateral position. Digital rectal examination was performed which revealed no abnormalities. The prostate was symmetrical without nodules. Flexible colonoscope was then placed in the patient's anus and passed throughout the entire colon. The ileocecal valve was visualized. The cecum, ascending, transverse, descending and sigmoid colon were normal. The rectum was normal as well. There were no masses, polyps or diverticula noted in the entire colon. Next, the gastroscope placed oropharynx passed in the esophagus and into the stomach. Scope was then placed through the pylorus. The first and second portion of the duodenum appeared normal. The scope was then brought back the antrum and this appeared mildly inflamed. A biopsies performed. The scope was then retroflexed the remainder of the stomach appeared normal. The GE junction was at 40 cm. The distal esophagus appeared inflamed. There is no evidence of a hiatal hernia. The distal esophagus was biopsied. The proximal esophagus appeared normal. Scope was withdrawn for patient.
[2018-08-02 08:54] VITALS: BP 121/75; PULSE 64
== END | disposition home or self-care (01) ==
LOC: ORWHC2ENDO 07:16
PROVIDERS: ATTEND Surgery
DX: Z12.11 Encounter for screening for malignant neoplasm of colon (principal); K29.50 Unspecified chronic gastritis without bleeding; K21.9 Gastro-esophageal reflux disease without esophagitis; I10 Essential (primary) hypertension; E78.5 Hyperlipidemia, unspecified; Z79.899 Other long term (current) drug therapy; Z88.2 Allergy status to sulfonamides; Z91.040 Latex allergy status
CPT/HCPCS: 88305; 45378; 43239; J2704

== ENCOUNTER → 2020-01-02 | Outpatient (CLI) | payer BC ==
--- NOTE | 2020-01-02 12:38 | EST ---
EXERCISE STRESS DATE OF SERVICE: 01/02/2020. AGE: 64 SEX: M HT: 6' WT: 175 lbs PROTOCOL: Je STAGE: 2 DURATION OF EXERCISE: 5:59 HEART RATE REST: 73 BLOOD PRESSURE REST: 155/87 MAXIMUM HEART RATE ACHIEVED: 150 MAXIMUM BLOOD PRESSURE: 203/81 85% MPHR: 132 100% MPHR: 155 METS: 7.1 INDICATIONS: Chest pain, shortness of breath. STRESS DATA: Heart rate is 73, pressure is 155/87 mmHg. Baseline EKG showed sinus mechanism. The patient exercised on the treadmill according to Je protocol for a total of 5 minutes and achieved 7.1 METS. Max heart rate was 142 which is about 100% of maximum predicted heart rate. Maximum blood pressure was 203/81 mmHg. Clinically the patient did not have any symptoms of chest pain or chest discomfort. The EKG did not show any significant ST or T-wave abnormalities concerning for ischemia. CONCLUSION: 1. Average exercise tolerance. 2. Normal EKG in response to exercise. MMODL / IJN: [id number] /
== END | disposition home or self-care (01) ==
LOC: RADNMMAIN 08:43
PROVIDERS: ATTEND Family Medicine
DX: R06.00 Dyspnea, unspecified (principal)
CPT/HCPCS: 93017

== ENCOUNTER → 2023-08-13 | Outpatient (CLI) | payer MEDICARE ==
--- NOTE | 2023-08-13 12:37 | CA ---
Exercise Nuclear Stress Test Report Name: Jerry Goodwin Exam Date: 08/13/2023 10:02 Exam Location: [place] Stress Ht (in): Wt (lb): BSA: Ordering Phys: Romeo Matthews MD Referring Phys: SKYLAR, Technologist: DEBBIE,, Age: 68 Gender: M : 1955 Procedure CPT: 23282 Indications: I10 hypertention ICD-10 Codes: Patient History: Chest pain and hypertension Medications: Meds past 24 hrs: Pretest Chest Pain: STRESS TEST Je Protocol Exercise Duration (min:sec): 07:[address] Depressions (mm): Angina Score: Zafar Score: Resting HR (bpm): 64 Peak HR (bpm): 150 Resting BP (mmHg): 157 / 84 Peak BP (mmHg): 211 / 88 MPHR: 151 Target HR: 128 % MPHR: 99 METS: 8.5 Total Dose: Peak Dose: Atropine: Double Product: 88462 BP Response: Stress Termination: MAX EXERTION/TARGET HR Stress Symptoms: NO SYMPTOMS Stress Summary: ECG ANALYSIS Resting ECG: Normal sinus rhythm heart rate 64 bpm, normal axis, no blocks Stress ECG: No significant ST-T wave changes diagnostic for ischemia by ST segment analysis. There are occasional PACs. There were no sustained arrhythmias CONCLUSIONS Nonischemic ECG response to treadmill exercise Fair exercise tolerance achieving 8.5 METS Normal clinical response to treadmill exercise Hypertensive response to treadmill exercise Please refer to the nuclear portion of the stress test for the complete interpretation of this study Dr Yoel Gamez (Electronically Signed) Final Date: 13 August 2023 12:36
--- NOTE | 2023-08-17 08:07 | NM ---
EXAMINATION TYPE: NM stress cardiolite complete DATE OF EXAM: 08/13/2023 COMPARISON: NONE CLINICAL INDICATION: Male, 68 years old with history of I10 hypertension; TECHNIQUE: After the intravenous administration of 10.1 mCi Tc 99m Sestamibi - Rest images obtained 45 minutes post injection. The patient exercised using a JOSH protocol and 1 minute prior to peak exercise was injected with 24.1 mCi Tc 99m Sestamibi - Stress images obtained 15 minutes post injecti on. FINDINGS: Targeted heart rate was achieved during performance of the study. Review of stress and rest SPECT alex ges demonstrates no distinct perfusion abnormality. Gated analysis shows normal wall motion with an estimated left ventricular ejection fraction of 70 %. IMPRESSION: No scintigraphic evidence for reversible ischemia
== END | disposition home or self-care (01) ==
LOC: RADNMMAIN 07:43
PROVIDERS: ATTEND Family Medicine
DX: I10 Essential (primary) hypertension (principal); R07.9 Chest pain, unspecified
CPT/HCPCS: 93017; 78452; A9500